=== PATIENT | male | born 1950 | race Caucasian/White ===

== ENCOUNTER → 2018-04-25 08:45 | Outpatient (CLI) | payer OTHER, SELFPAY ==
--- NOTE | 2018-04-25 08:49 | ECHOD_ITS ---
Reason For Study: MURMUR Procedure This was a 2D Doppler, Color Flow transthoracic echocardiogram. Exam performed in department. Left Ventricle Normal LV size. Moderate concentric left ventricular hypertrophy. Left ventricular systolic function is normal. The estimated ejection fraction is 60 %. Transmitral diastolic flow velocities suggest mild (stage 1) diastolic dysfunction (reversed pattern). No regional wall motion abnormalities noted. Right Ventricle Normal RV size. Normal systolic function. Atria Normal left atrium. Normal right atrium. Mitral Valve Normal mitral valve. Mild (1+) eccentric mitral valve insufficiency. Tricuspid Valve Normal tricuspid valve. Mild (1+) tricuspid valve insufficiency. Pulmonary artery systolic pressure is 38 mmHg. Aortic Valve The aortic valve is not well visualized. Moderate focal aortic valve calcification. Peak aortic valve gradient 71 mmHg. Mean aortic valve gradient 44 mmHg. Calculated aortic valve area (continuity equation) is 1.0 cm2. Severe aortic stenosis. Pulmonic Valve The pulmonic valve is not well visualized. Great Vessels Normal aortic root. The pulmonary artery is normal size. Normal inferior vena cava. Pericardium/Pleural No pericardial effusion. MMode/2D Measurements & Calculations RVDd: 3.0 cm LVOT diam: 2.1 cm Ao root diam: 3.3 cm LVOT area: 3.3 cm2 LAV(MOD-bp): 48.7 ml EDV(MOD-sp4): 96.7 ml SV(MOD-sp4): 62.5 ml LAV(MOD-bp) Indexed: 22.9 ml/m2 ESV(MOD-sp4): 34.2 ml LAV(MOD-sp2): 57.5 ml EF(MOD-sp4): 64.7 % LAV(MOD-sp4): 39.7 ml LA A4 area: 16.0 cm2 RA A4 area: 13.3 cm2 Time Measurements MV dec time: 0.32 sec Doppler Measurements & Calculations MV E max joey: 78.5 cm/sec Lat Peak E' Joey: 7.1 cm/sec Med Peak E' Joey: 5.5 cm/sec MV A max joey: 120.6 cm/sec E/E' lat: 11.0 E/E' med: 14.3 MV E/A: 0.65 Ao V2 max: 421.9 cm/sec LV V1 max: 126.7 cm/sec SV(LVOT): 102.8 ml Ao max P.3 mmHg LV V1 max P.4 mmHg Ao V2 mean: 317.1 cm/sec LV V1 mean P.1 mmHg Ao mean P.5 mmHg LV V1 mean: 95.3 cm/sec Ao V2 VTI: 90.3 cm LV V1 VTI: 31.2 cm CLAUDY(I,D): 1.1 cm2 CLAUDY(V,D): 0.99 cm2 PA V2 max: 107.0 cm/sec TR max joey: 289.4 cm/sec TR max P.5 mmHg Interpretation Summary Normal LV size. Moderate concentric left ventricular hypertrophy. Left ventricular systolic function is normal. The estimated ejection fraction is 60 %. Moderate focal aortic valve calcification. Peak aortic valve gradient 71 mmHg. Mean aortic valve gradient 44 mmHg. Calculated aortic valve area (continuity equation) is 1.0 cm2. Severe aortic stenosis. Ordering Physician: Kasi Ritter Referring Physician: ZAHIRA DURHAM Performed By: Ambreen Castro RDCS
== END ==
PROVIDERS: Family Provider Family Medicine; PCP Family Medicine; Visit Provider Internal Medicine Cardiovascular Disease
DX: I35.9 Nonrheumatic aortic valve disorder, unspecified (principal)
CPT/HCPCS: 93306

== ENCOUNTER → 2018-06-01 06:47 | Day surgery (SDC) | payer OTHER, SELFPAY ==
[2018-05-31 11:21] VITALS: BMI 27.8
[2018-06-01 07:04] LABS: Absolute Lymphocyte Count 1.86 X10^3/ul (0.83-4.51); Absolute Neutrophil Count 2.8 X10^3/uL (2.0-7.7); Basophil# 0.02 X10^3/uL; Basophil% 0.4 % (0-1); Eosinophil# 0.21 X10^3/uL; Hematocrit 49.1 % (40-54); Hemoglobin 16.7 g/dl (13.0-16.5); Lymphocyte # 1.86 X10^3/ul (4.0); Lymphocyte % 35.7 % (19-41); Mean Corpuscular Hgb 32.6 pg (27.0-32.0); Mean Corpuscular Volume 95.7 fL (80-94); Mean Platelet Vol. 9.1 fl (6.2-12.0); Monocyte# 0.31 X10^3/uL; Neutrophil # 2.79 X10^3/uL (2.7-7.7); Neutrophil % 53.5 % (47-70); POSITIVE COUNT NO; POSITIVE DIFFERENTIAL NO; POSITIVE MORPHOLOGY NO; Platelet Count 157 K/mm3 (150-450); RBC Distribution Width CV 13.4 % (11.6-14.6); RBC Distribution Width SD 46.5 fl (35.1-43.9); Red Blood Count 5.13 M/mm3 (4.6-6.2); White Blood Count 5.2 K/mm3 (4.4-11.0)
[2018-06-01 07:20] LABS: Anion Gap 9 (5-15); BUN 12 mg/dL (7-18); Calcium,Total 8.7 mg/dL (8.5-10.1); Chloride 108 mmol/L (98-107); Creatinine, Serum 0.93 mg/dL (0.70-1.30); EST Glomerular Filtration Rate 86 mL/min (>60); Est Glom Filt Rate - Afr Amer 104 mL/min (>60); Estimated Creatinine Clearance 80.97 ml/min; Glucose 94 mg/dL (74-106); Potassium 3.7 mmol/L (3.5-5.1); Sodium Level 143 mmol/L (136-145)
[2018-06-01 07:22] LABS: International Normalized Ratio 0.9; Prothrombin Time (Protime)PT. 12.5 SECONDS (11.7-14.9)
[2018-06-01 08:36] LABS: Base Excess -2 mmol/L (-2 to +2); Bicarbonate 23.1 mmol/L (22-26); Blood Gas Specimen Type ART; PO2 79 mmHG (75-100); SO2 96 % (95-99); Total Carbon Dioxide 24 mmol/L; pCO2 36.2 mmHg (35-45); pH 7.41 (7.35-7.45)
[2018-06-01 08:36] LABS: Blood Gas Specimen Type VEN; VBG BASE EXCESS 0 mmol/L (-1.0-3.5); VBG Bicarbonate 25 mmol/L (22-26); VBG Oxygen Content 26 mmol/L (23-33); VBG PO2 35 mmHg (25-40); VBG SO2 66 % (50-70); VBG pH 7.38 (7.32-7.42)
[2018-06-01 08:36] LABS: Blood Gas Specimen Type VEN; VBG BASE EXCESS 0 mmol/L (-1.0-3.5); VBG Bicarbonate 25 mmol/L (22-26); VBG Oxygen Content 27 mmol/L (23-33); VBG PO2 39 mmHg (25-40); VBG SO2 73 % (50-70); VBG pCO2 41.8 mmHg (41-51); VBG pH 7.39 (7.32-7.42)
--- NOTE | 2018-06-01 08:50 | CL.D_ITS ---
Patient Name: ANAHI GAR Study Date: 06/01/2018 Performing: Kasi Ritter MD Ht: 70.86 inches 180 cm : 1950 Wt: 200.62 lbs 91 kg Age: 67 Gender: male BSA: 2.11 PROCEDURE(S) PERFORMED [id number]/LHC/COR CLINICAL PROFILE AND INDICATIONS Indications: Valvular Disease Heart Failure: None Stress/Imaging Stress/Image Study Performed: No CAD Presentations: No Sxs, no angina. CONCLUSIONS Non obstructive coronary arteries Right heart pressures - Normal Aortic Valve Calcification- Severe RECOMMENDATIONS Surgery consult for Valve Replacement surgery DESCRIPTION OF PROCEDURE The patient arrived to the procedure lab. The risks and benefits of the procedure as well as a full d escription of our services here and current unavailability of surgical backup were fully explained to the patient and/or their significant other prior to the catheterization. The Timeout was completed, verifying the correct patient and procedure. The patient's procedural site was prepped and draped in the usual fashion. Local anesthetic was given subcutaneously to right groin region with Lidocaine 2%. Using a modified Seldinger technique, arterial access was obtained via the right femoral artery, a 5 Fr sheath was inserted. Venous access was obtained via the right femoral vein, a 7Fr sheath was inser jamila. A 7Fr thermal dilution catheter was inserted and right heart pressures were recorded, it was the n advanced to PA position for cardiac outputs. Thermal dilution cardiac outputs were then recorded. O 2 saturations were then obtained. The Thermal dilution catheter was then removed. Left Coronary Arter y selective angiography was performed in multiple views using a 5 Fr. JL4 catheter. Right Coronary Ar alexia selective angiography was then performed in multiple views using a 5 Fr. 3DRC (Armando) cathete r.Contrast was injected through the sheath and the Right Iliac and Femoral artery were assessed for p ossible closure device.The arterial sheath was pulled and a Mynx closure device was deployed for hemo stasis. The venous sheath was then pulled and manual compression applied until hemostasis achieved CORONARY ANGIOGRAPHY DOMINANCE: Left Dominant LEFT HEART ASSESSMENT Left Ventricular Ejection Fraction: by Echo 60 % Normal Left Ventricular systolic function RIGHT HEART ASSESSMENT Thermal CO: 3.67 Thermal CI: 1.74 Tyler CO: 4.12 Tyler CI: 1.95 PW: 10/ 9 PA: 19 RV: 40/0 12 RA: 05/31 4 PVR: 218 SVR: 2572 Right Heart pressures - normal LEFT MAIN: Angiographically normal, Mild calcification LEFT ANTERIOR DECENDING ARTERY: Mild luminal irregularities CIRCUMFLEX ARTERY: No significant disease noted RIGHT CORONARY ARTERY: Mild luminal irregularities VALVE FINDINGS: Aortic Valve Stenosis - severe AORTIC ROOT: Dilated COMPLICATIONS No Complications PROCEDURE MEDICATIONS Versed 1 mg IV SUMMARY OF HEMODYNAMIC DATA Time AIR REST ECG 07:19:55 RA 05/31 (4) SV 08:03:01 RV 40/0, 12 08:03:25 PW 09/04 (9) PV 08:03:51 PA 29/13 (19) PA 08:04:00 PA 32/17 (22) 08:06:32 RV 32/7, 12 08:06:46 RA 11/11 (12) 08:06:50 AO 165/94 (122) SA 08:08:58 Type SV CO (l/m) CI (l/m/ HR Time AIR REST Thermal 57.30 3.67 1.74 64 07:19:55 Tyler 64.40 4.12 1.95 64 07:19:55 Label % O2 Pres/Loc Time AIR REST AO 96 PV 08:26:35 RA 66 SV 08:26:44 PA 73 PA 08:26:58 Signed By Kasi Ritter MD On 06/01/2018 08:49:25 Kasi Ritter MD
== END ==
PROVIDERS: Family Provider Family Medicine; PCP Family Medicine; Visit Provider Internal Medicine Cardiovascular Disease
DX: I35.2 Nonrheumatic aortic (valve) stenosis with insufficiency (principal); I10 Essential (primary) hypertension; E78.5 Hyperlipidemia, unspecified; Z86.73 Personal history of transient ischemic attack (TIA), and cerebral infarction without residual deficits; Z86.718 Personal history of other venous thrombosis and embolism; Z87.891 Personal history of nicotine dependence
CPT/HCPCS: 36415; 80048; 82803; 85025; 85610; 93456; 99152; 99153; C1760; J7040; Q9967; C1751; C1894

== ENCOUNTER → 2018-10-08 09:56 | Outpatient (CLI) | payer OTHER, SELFPAY ==
--- NOTE | 2018-10-08 09:58 | ECHOD_ITS ---
Reason For Study: Valve Replacement Procedure This was a 2D Doppler, Color Flow transthoracic echocardiogram. The study was technically difficult. Exam performed in department. Left Ventricle Normal LV size. Left ventricular systolic function is normal. The estimated ejection fraction is 60 %. Stage 1 diastolic dysfunction. No regional wall motion abnormalities noted. Right Ventricle Normal RV size. Normal systolic function. Atria Normal left atrium. Normal right atrium. Mitral Valve Normal mitral valve. Tricuspid Valve Normal tricuspid valve. Mild tricuspid valve insufficiency. Pulmonary artery systolic pressure is 27 mmHg. Aortic Valve Peak aortic valve gradient 15 mmHg. Mean aortic valve gradient 7 mmHg. Stable appearing bioprosthetic aortic valve apparatus. Pulmonic Valve Normal pulmonic valve. Great Vessels Normal aortic root. The pulmonary artery is normal size. Normal inferior vena cava. Pericardium/Pleural No pericardial effusion. MMode/2D Measurements & Calculations LVIDd: 4.1 cm IVSd: 1.0 cm LVOT diam: 2.0 cm LVIDs: 2.7 cm LVPWd: 1.0 cm LVOT area: 3.1 cm2 RVDd: 3.9 cm FS: 34.0 % Ao root diam: 3.7 cm LAV(MOD-bp): 75.5 ml LVAd ap4: 35.5 cm2 LA dimension: 4.4 cm LAV(MOD-bp) Indexed: 37.0 ml/m2 EDV(MOD-sp4): 110.5 ml LAV(MOD-sp2): 90.6 ml EDV(sp4-el): 119.5 ml LAV(MOD-sp4): 57.6 ml LVAs ap4: 20.0 cm2 ESV(MOD-sp4): 42.9 ml ESV(sp4-el): 44.9 ml EF(MOD-sp4): 61.2 % EF(sp4-el): 62.4 % SV(MOD-sp4): 67.7 ml SV(sp4-el): 74.6 ml LA A4 area: 19.8 cm2 RA A4 area: 18.1 cm2 Time Measurements MV dec time: 0.32 sec Doppler Measurements & Calculations MV E max joey: 85.0 cm/sec Lat Peak E' Joey: 9.2 cm/sec Med Peak E' Joey: 5.9 cm/sec MV A max joey: 113.7 cm/sec E/E' lat: 9.3 E/E' med: 14.3 MV E/A: 0.75 MV V2 max: 128.1 cm/sec MV P1/2t max joey: 98.2 cm/sec Ao V2 max: 194.1 cm/sec MV max P.6 mmHg MV P1/2t: 113.1 msec Ao max P.1 mmHg MV V2 mean: 67.0 cm/sec MV dec slope: 254.5 cm/sec2 Ao V2 mean: 116.5 cm/sec MV mean P.1 mmHg MVA(P1/2t): 1.9 cm2 Ao mean P.7 mmHg MV V2 VTI: 35.6 cm Ao V2 VTI: 34.2 cm MVA(VTI): 2.2 cm2 CLAUDY(I,D): 2.3 cm2 CLAUDY(V,D): 1.9 cm2 LV V1 max: 120.4 cm/sec SV(LVOT): 78.7 ml PA V2 max: 73.8 cm/sec LV V1 max P.8 mmHg LV V1 mean P.5 mmHg LV V1 mean: 71.8 cm/sec LV V1 VTI: 25.3 cm TR max joey: 248.5 cm/sec TR max P.7 mmHg Interpretation Summary Normal LV size. Left ventricular systolic function is normal. The estimated ejection fraction is 60 %. Stage 1 diastolic dysfunction. Mild tricuspid valve insufficiency. Pulmonary artery systolic pressure is 27 mmHg. Stable appearing bioprosthetic aortic valve apparatus. Mean aortic valve gradient 7 mmHg. Ordering Physician: Kasi Ritter Referring Physician: Alphonso Casey Performed By: Lamont Bello RCS
== END ==
PROVIDERS: Family Provider Family Medicine; PCP Family Medicine; Referring Provider Internal Medicine Cardiovascular Disease; Visit Provider Internal Medicine Cardiovascular Disease
DX: Z95.2 Presence of prosthetic heart valve (principal)
CPT/HCPCS: 93306

== ENCOUNTER 2019-07-15 09:52 | Day surgery (SDC) | payer OTHER, SELFPAY ==
[2018-12-18 11:14] VITALS: BMI 27.6
--- NOTE | 2019-07-15 | LES_PTH ---
PATIENT: ANAHI GAR [place] [facility] [id number] AGE/SX: 68/M ROOM: RE07/15/[address]: Dr. Manuel Mcdowell MD : 1950 BED: DIS: 07/15/2019 SPEC #: [id number] RECD: 07/15/19 11:51 STATUS: CARLOS REDedra #: [id number] MILES: 07/15/19 00:[address]: Manuel Mcdowell DEPT: SURGICAL PATHOLOGY RECD BY: Luz Marina Garcia ENTERED: 07/15/19 11:52 SP TYPE: Lesion OTHR DR: Dr. Alphonso Casey MD Tissues: Skin of external ear, NOS Procedures: Frozen Section (charge) Surgery Specimen Level IV HEADER OPERATION: Excision lesion, ear PRE-OP DIAGNOSIS: Benign neoplasm skin of ear and external auricular canal TISSUE SUBMITTED: Left ear lesion FROZEN SECTION DIAGNOSIS Left ear lesion, biopsy: Negative for malignancy. SJ:bebeto 07/15/19 MICROSCOPIC DIAGNOSIS Left ear lesion, biopsy: Atypical fibroxanthoma, fragments. See comment. DANK:karina 07/24/19 COMMENT This case was sent to [facility] (#[id number]) for expert opinion and reviewed by Dr. Jaramillo and above diagnosis is rendered. Immunohistochemistry ([id number]) performed here and additional immunohistochemical stains performed there supports the above diagnosis. Complete consultation report is viewable in patient's EMR This lesion usually behave in a benign manner with a rare chance of recurrence. Clinical correlation and appropriate follow up are necessary. Case has been reviewed in consultation with Dr. Butler who concurs with the above diagnosis. IDC:AM MICROSCOPIC DESCRIPTION Slides are reviewed. GROSS DESCRIPTION Received fresh for frozen section diagnosis labeled with the patient's name is a specimen designated left ear lesion. The specimen consists of a polypoid piece of porter-white skin measuring 0.9 x 0.9 x 0.7 cm. The specimen is inked, bisected and submitted entirely for frozen section diagnosis in one cassette. The specimen got fragmented during sectioning resulting in multiple pieces. / SJ:bebeto 07/15/19 TC:1 CPT: 94262, 97126
--- NOTE | 2019-07-15 | IMM_PTH ---
PATIENT: ANAHI GAR LOC: [facility] – [place] U#:[id number] AGE/SX: 68/M ROOM: RE07/15/[address]: Dr. Manuel Mcdowell MD : 1950 BED: DIS: 07/15/2019 SPEC #: [id number] RECD: 07/16/19 11:05 STATUS: CARLOS REQ #: [id number] MILES: 07/15/19 00:[address]: Manuel Mcdowell DEPT: IMMUNOHISTOCHEMISTRY RECD BY: Luz Marina Garcia ENTERED: 07/16/19 11:07 SP TYPE: IMMUNO OTHR DR: Dr. Alphonso Casey MD Tissues: Skin of external ear, NOS Procedures: SMA (add) CD34 (add) CK5-6 (add) DESMIN (add) MART1 (add) Vimentin (add) Pankeratin (initial) P40 (add) S-100 (add) PHYSICIAN & INSTITUTION [place] [phone] SPECIMEN INFORMATION: Tissue Source: Left ear lesion Clinical Info: Benign neoplasm skin of ear and external auricular canal Specimen Number: [id number] CPT code: 12032, 88480 x8 METHODOLOGY: Deparaffinized sections of prefer/formalin-fixed tissue or PAP/DQ stained slides are incubated with monoclonal/polyclonal antibodies/oligonucleotide probes. Localization is made via biotin free immunoperoxidase method. Appropriate controls are performed and reacted as expected. Results on target cell population are indicated in the following table: RESULTS: ANTIBODY / CLONE RESULT AE1-3 (AE1/AE3/PCK26) negative CK5-6 (D5 & 1684) negative P40 (BC28) negative Vimentin (V9) positive S-100 (4C4.9) negative MART-1 (A-103) negative Actin (1A4) negative Desmin (CE-R-11) negative CD34 (QBEnd-10) negative These tests were developed and their performance characteristics determined by [facility]. They may not have been cleared or approved by the U.S. Food and Drug Administration. The FDA has determined that such clearance or approval is not necessary. INTERPRETATION: Left ear lesion, biopsy: Atypical fibroxanthoma. See Comment. DANK:jovanny 07/24/19 COMMENT: This case is sent to [facility] for expert opinion and reviewed by Dr. Pagan and above diagnosis is rendered.
[2019-07-15 10:26] VITALS: PULSE 76; RESP 17; TEMP 36.6; O2SAT 100; BMI 28.0
--- NOTE | 2019-07-15 11:09 | DCINST_ITS ---
You will use the following diet at home:: No restrictions, Regular Discharge Activity: Return to Normal Activity Additional Activity Instructions:: Remove dressing tomorrow. Apply antibiotic ointment twice a day. May shower on Monday. Allergies/Adverse Reactions: Allergies acetaminophen [From Percocet] Adverse Reaction (Unknown, Verified 07/15/19 10:25) Goes Crazy oxycodone [From Percocet] Adverse Reaction (Unknown, Verified 07/15/19 10:25) Goes Crazy simvastatin Adverse Reaction (Verified 07/15/19 10:25) myalgias Medications to take at Discharge cyanocobalamin (vit B-12) 500 mcg tablet 500 mcg PO QDAY 03/26/18 multivitamin tablet 1 tab PO QDAY 03/26/18 lisinopril 20 mg-hydrochlorothiazide 12.5 mg tablet 1 tab PO BID 30 Days #30 tab 12/18/18 metoprolol succinate ER 50 mg tablet,extended release 24 hr 50 mg PO DAILY tab 12/18/18 Aspirin 325 mg PO DAILY@0800 07/09/19 Cholecalciferol (Vitamin D3) [Vitamin D3] 1,000 unit PO DAILY 07/09/19 Glucosamine Sulfate 1,000 mg PO DAILY 07/09/19 Raw Vinegar 1 oz PO DAILY 07/09/19 Rosuvastatin Calcium [Crestor] 10 mg PO SUTUTHSA 07/09/19 Primary Care Physician: Alphonso Casey MD [Primary Care Provider] - Test Results: Test results from this visit will be discussed in further detail at your follow- up appointment, if applicable.
[2019-07-15] MEDS: Bacitracin 500 UNITS/GM PACKET (11:45)
--- NOTE | 2019-07-15 11:49 | PCM.OPRPT ---
Report of Operation Date of Procedure: 07/15/19 Pre-Operative Diagnosis: left ear lesion Post-Operative Diagnosis: same Surgery/Procedure Performed:: Excision left ear lesion. Simple repair (8x 15 mm) Description of Surgical Findings:: benign on frozen section Type of Anesthesia:: Local Estimated Blood Loss (mL): minimal Description of Procedure: The patient was taken to the OR on 07/15/19. He was placed on the OR cart. The left ear was prepped and draped steriley. 1% lidocaine with epinephrine was injected into the skin around the lesion. The lesion was excised in an ellipse with a 15 blade. This was sent for frozen section. I obtained hemostasis with bipolar cautery. I then irrigated the ear. I undermined circumferentially around the skin. The skin was then closed with interrupted 6-0 nylon. A Allen dressing was applied. The patient was then brought to the holding area in stable condition. Blood loss minimal, replacement none. Sponge, needle and instrument count were correct at the end of the procedure.
[2019-07-15 12:05] VITALS: BP 157/112; PULSE 64; RESP 16; TEMP 36.3; O2SAT 95
== END 2019-07-15 12:10 | disposition home or self-care (01) ==
LOC: SDC 09:55 → AC 09:57
PROVIDERS: Family Provider Family Medicine; PCP Family Medicine; Referring Provider Otolaryngology; Visit Provider Otolaryngology
PROC: (CPT 11443; principal; 2019-07-15 11:15)
DX: D23.22 Other benign neoplasm of skin of left ear and external auricular canal (principal); D48.5 Neoplasm of uncertain behavior of skin; I25.10 Atherosclerotic heart disease of native coronary artery without angina pectoris; I10 Essential (primary) hypertension; I35.0 Nonrheumatic aortic (valve) stenosis; E78.00 Pure hypercholesterolemia, unspecified; Z86.73 Personal history of transient ischemic attack (TIA), and cerebral infarction without residual deficits; Z87.891 Personal history of nicotine dependence; Z95.2 Presence of prosthetic heart valve; Z79.82 Long term (current) use of aspirin; Z79.899 Other long term (current) drug therapy; R53.83 Other fatigue; R51 Headache; M25.60 Stiffness of unspecified joint, not elsewhere classified; R25.2 Cramp and spasm; Z85.828 Personal history of other malignant neoplasm of skin; Z86.718 Personal history of other venous thrombosis and embolism; F10.20 Alcohol dependence, uncomplicated; Y90.9 Presence of alcohol in blood, level not specified
CPT/HCPCS: 11443; 88305; 88331; 88341; 88342

== ENCOUNTER 2022-11-07 09:10 | Outpatient (CLI) | payer OTHER, SELFPAY ==
--- NOTE | 2022-11-07 09:23 | ECHOTEE_ITS ---
Reason For Study: Bioprosthetic AV Medication BEL probe 6VT-D (SN [id number]) passed with minimal difficulty. No complications were noted. Cetacaine Topical [place] given X3 orally. Versed 3 mg given slow IVP. Fentanyl 50 mcg given slow IVP. Performed a rapid injection of agitated mix of 9 cc saline and 1cc air to assess for atrial septal defect. Left Ventricle Normal LV size. Left ventricular systolic function is normal. The estimated ejection fraction is 60 %. No regional wall motion abnormalities noted. Right Ventricle Normal RV size. Normal systolic function. Atria Bubble contrast study negative for right to left interatrial shunt. Normal left atrium. Normal right atrium. Mitral Valve There is mild mitral annular calcification. Mild (1+) eccentric mitral valve insufficiency. Tricuspid Valve Normal tricuspid valve. Trivial tricuspid valve insufficiency. Aortic Valve Peak aortic valve gradient 66 mmHg. Mean aortic valve gradient 41 mmHg. Normal prosthetic aortic valve. Pulmonic Valve Normal pulmonic valve. Vessels Normal aortic root. Normal arch. The pulmonary artery is normal size. Pericardium No pericardial effusion. MMode/2D Measurements & Calculations LVOT diam: 2.1 cm LVOT area: 3.6 cm2 Doppler Measurements & Calculations Ao V2 max: 405.8 cm/sec LV V1 max: 137.2 cm/sec SV(LVOT): 109.9 ml Ao max P.1 mmHg LV V1 max P.5 mmHg Ao V2 mean: 308.3 cm/sec LV V1 mean P.2 mmHg Ao mean P.7 mmHg LV V1 mean: 95.3 cm/sec Ao V2 VTI: 93.0 cm LV V1 VTI: 30.6 cm AV (velocity ratio): 0.33 CLAUDY(I,D): 1.2 cm2 CLAUDY(V,D): 1.2 cm2 ECHO/Echo Transesophageal (BEL) Interpretation Summary Normal LV size. Left ventricular systolic function is normal. The estimated ejection fraction is 60 %. Normal prosthetic aortic valve. Mean aortic valve gradient 41 mmHg. Ordering Physician: Kasi Ritter Referring Physician: Corrina Campbell Performed By: Suzi Lima, DAVE
== END 2022-11-07 11:50 | disposition home or self-care (01) ==
LOC: CVS 09:12
PROVIDERS: PCP Family Medicine; Visit Provider Internal Medicine Cardiovascular Disease
DX: T82.857A Stenosis of other cardiac prosthetic devices, implants and grafts, initial encounter (principal); I35.2 Nonrheumatic aortic (valve) stenosis with insufficiency; I25.10 Atherosclerotic heart disease of native coronary artery without angina pectoris; I10 Essential (primary) hypertension; E78.00 Pure hypercholesterolemia, unspecified; Z95.2 Presence of prosthetic heart valve; Z95.1 Presence of aortocoronary bypass graft
CPT/HCPCS: 87426; 93312; 93320; 93325; C9803; J7040; A4216

== ENCOUNTER → 2024-07-15 | Outpatient (CLI) | payer BC, SELFPAY ==
--- NOTE | 2024-07-15 16:41 | RAD_ITS ---
EXAM: XR RIGHT KNEE COMPLETE, 4 OR MORE VIEWS CLINICAL INDICATION: PAIN TECHNIQUE: Four or more views of the right knee. COMPARISON: No relevant prior studies available. FINDINGS: BONES/JOINTS: Spurring of the tibial spines and minimal marginal osteophytosis. No acute fracture. No subluxation. Normal alignment. Preservation of the joint space. No sclerotic or destructive changes observed. SOFT TISSUES: No significant abnormality. No soft tissue swelling or gas. No radiopaque foreign body. VASCULATURE: Vascular calcifications. RAD/Knee 4 or More Views IMPRESSION: Degenerative changes. No acute osseous findings. Electronically Signed: Vinh Miller DO at 23:49 EDT ,
== END | disposition home or self-care (01) ==
PROVIDERS: PCP Nurse Practitioner Family; Referring Provider Nurse Practitioner Family; Visit Provider Nurse Practitioner Family
DX: M25.561 Pain in right knee (principal)
CPT/HCPCS: 73564

== ENCOUNTER → 2025-02-24 | Outpatient (CLI) | payer BC, SELFPAY ==
--- NOTE | 2025-02-24 14:16 | STRESSREP ---
Stress Test Report Pharmacologic myocardial perfusion stress test. 74-year-old man with a history of coronary artery disease Resting EKG demonstrates sinus rhythm with a rate of 66 bpm. Resting blood pressure is 132/72 mmHg. 0.4 mg of regadenoson was infused per usual protocol followed by rapid intravenous saline flush injection. Continuous EKG monitoring was performed. The maximum heart rate was 83 bpm which was 57% of max impacted heart rate the maximum workload was 1 metabolic equivalent. At rest there were non specific ST or T wave changes noted to suggest ischemia and at peak infusion nonspecific ST changes were noted which did not meet the criteria for ischemia. No clinical angina is noted. The final blood pressure was 132/70 mmHg. Myocardial perfusion protocol. 11.3 mCi of technetium 99m sestamibi was injected at rest. 0.4 mg of regadenoson was infused per usual protocol. At peak infusion 34.8 mCi of technetium 99m sestamibi was injected stress images were obtained stress and rest images were reconstructed and compared in the short axis vertical long and horizontal long axis. Gated images were also obtained. Perfusion SPECT analysis: Review of the stress images demonstrate normal uptake of tracer noted in all areas of the myocardium. The resting images similar demonstrated normal uptake of tracer noted in all areas of the myocardium. No areas of reversibility are noted to suggest ischemia and no previous infarct is noted. Gated SPECT analysis: The gated ejection fraction is 53%. Conclusion: Normal pharmacologic myocardial perfusion stress test. Preserved ejection fraction.
== END | disposition home or self-care (01) ==
PROVIDERS: PCP Nurse Practitioner Family; Referring Provider Internal Medicine Cardiovascular Disease; Visit Provider Internal Medicine Cardiovascular Disease
DX: I25.10 Atherosclerotic heart disease of native coronary artery without angina pectoris (principal); Z95.2 Presence of prosthetic heart valve; R06.09 Other forms of dyspnea
CPT/HCPCS: 78452; 93017; A9500; A4216; J2785

== ENCOUNTER → 2025-03-10 | Outpatient (CLI) | payer BC, SELFPAY ==
--- NOTE | 2025-03-10 13:43 | ECHOD_ITS ---
Reason For Study Reason For Study: SOB Procedure This was a 2D Doppler, Color Flow transthoracic echocardiogram. Exam performed in department. Left Ventricle Normal LV size. Moderate concentric left ventricular hypertrophy. The left ventricular ejection fraction is 70 %. No regional wall motion abnormalities noted. Right Ventricle Normal RV size. Normal systolic function. Atria The left atrium is mildly enlarged. Normal right atrium. Mitral Valve Bileaflet diffuse mitral valve thickening. Tricuspid Valve Normal tricuspid valve. Mild (1+) tricuspid valve insufficiency. Pulmonary artery systolic pressure is 35 mmHg. Aortic Valve Peak aortic valve gradient 124 mmHg. Mean aortic valve gradient 86 mmHg. Bioprosthetic aortic valve. Pulmonic Valve Normal pulmonic valve. Great Vessels Normal aortic root. The pulmonary artery is normal size. Inferior vena cava collapse with respiration. Pericardium/Pleural No pericardial effusion. MMode/2D Measurements & Calculations LVIDd: 3.7 cm IVSd: 1.5 cm LVOT diam: 2.0 cm LVIDs: 2.9 cm LVPWd: 1.3 cm LVOT area: 3.1 cm2 RVDd: 3.5 cm FS: 22.0 % LAV(MOD-bp): 87.0 ml LVAd ap4: 34.1 cm2 SV(MOD-sp4): 60.2 ml LAV(MOD-bp) Indexed: 43.6 ml/m2 LVLd ap4: 8.8 cm SI(MOD-sp4): 30.1 ml/m2 LAV(MOD-sp2): 89.4 ml EDV(MOD-sp4): 105.7 ml LAV(MOD-sp4): 84.1 ml EDV(sp4-el): 111.8 ml LVAs ap4: 20.5 cm2 LVLs ap4: 8.0 cm ESV(MOD-sp4): 45.6 ml ESV(sp4-el): 44.6 ml EF(MOD-sp4): 56.9 % EF(sp4-el): 60.1 % SV(sp4-el): 67.1 ml LA A4 area: 25.5 cm2 RA A4 area: 18.2 cm2 Time Measurements MV dec time: 0.27 sec Doppler Measurements & Calculations MV E max joey: 121.3 cm/sec Lat Peak E' Joey: 7.6 cm/sec Med Peak E' Joey: 5.4 cm/sec MV A max joey: 137.2 cm/sec E/E' lat: 15.9 E/E' med: 22.6 MV E/A: 0.88 MV V2 max: 135.7 cm/sec Ao V2 max: 556.9 cm/sec MV max P.4 mmHg MV dec slope: 450.6 cm/sec2 Ao max P.1 mmHg MV V2 mean: 94.8 cm/sec Ao V2 mean: 452.7 cm/sec MV mean P.8 mmHg Ao mean P.4 mmHg MV V2 VTI: 42.6 cm Ao V2 VTI: 137.9 cm PA V2 max: 82.4 cm/sec TR max joey: 281.9 cm/sec PA V2 mean: 50.7 cm/sec TR max P.8 mmHg ECHO/Echo Complete Interpretation Summary Normal LV size. The left ventricular ejection fraction is 70 %. Moderate concentric left ventricular hypertrophy. Bioprosthetic aortic valve. Mean aortic valve gradient 86 mmHg. Severe aortic bioprosthetic valve stenosis. Pulmonary artery systolic pressure is 35 mmHg. Ordering Physician: Kasi Ritter Referring Physician: Kasi Ritter Performed By: Erika Shepard RCS
== END | disposition home or self-care (01) ==
PROVIDERS: PCP Nurse Practitioner Family; Referring Provider Internal Medicine Cardiovascular Disease; Visit Provider Internal Medicine Cardiovascular Disease
DX: R06.09 Other forms of dyspnea (principal); I25.10 Atherosclerotic heart disease of native coronary artery without angina pectoris; Z95.1 Presence of aortocoronary bypass graft
CPT/HCPCS: 93306

== ENCOUNTER → 2025-05-21 | Outpatient (CLI) | payer OTHER, SELFPAY ==
--- NOTE | 2025-05-21 10:14 | ECHOTEE_ITS ---
Reason For Study Reason For Study: Aortic Stenosis Medication BEL probe 6VT-D (SN [id number]) passed with minimal difficulty. No complications were noted. Cetacaine Topical [place] given X3 orally. Versed 50 mg given slow IVP. Performed a rapid injection of agitated mix of 9 cc saline and 1cc air to assess for atrial septal defect. Left Ventricle Normal LV size. The left ventricular ejection fraction is 65 %. No regional wall motion abnormalities noted. Right Ventricle Normal RV size. Normal systolic function. Atria Bubble contrast study is negative for PFO/ASD. The left atrium is mildly enlarged. No thrombus is detected in the left atrial appendage. There is moderate sponatenous contrast in the left atrium. Normal right atrium. Mitral Valve Bileaflet diffuse mitral valve thickening. Mild-Moderate (1-2+) eccentric mitral valve insufficiency. Tricuspid Valve Normal tricuspid valve. Aortic Valve Severe aortic stenosis. Bioprosthetic aortic valve. Pulmonic Valve Normal pulmonic valve. Vessels Normal aortic root. Normal arch. The pulmonary artery is normal size. Pericardium No pericardial effusion. ECHO/Echo Transesophageal (BEL) Interpretation Summary Bubble contrast study is negative for PFO/ASD. Normal LV size. The left ventricular ejection fraction is 65 %. Severe aortic stenosis. Bioprosthetic aortic valve. There is moderate sponatenous contrast in the left atrium. Ordering Physician: KANIKA GAMBINO Referring Physician: KANIKA GAMBINO Performed By: Lamont Lewis and Student
== END | disposition home or self-care (01) ==
PROVIDERS: PCP Nurse Practitioner Family
DX: T82.857A Stenosis of other cardiac prosthetic devices, implants and grafts, initial encounter (principal); Y71.2 Prosthetic and other implants, materials and accessory cardiovascular devices associated with adverse incidents
CPT/HCPCS: 93312; 93320; 93325; A4216